=== PATIENT | male | born 1995 | race Caucasian/White ===

== ENCOUNTER 2021-07-16 12:59 | Day surgery (SDC) | payer OTHER ==
[~2021-07-16] VITALS: Ht 185.4 cm; Wt 105.9 kg
[~2021-07-16 12:59] MED LIST: NS 1,000 ML IV ONE
[2021-07-16] MEDS ORDERED: LIDOCAINE 2% 100MG/5ML SDV (FOR ANES.) As Ordered ONE (14:45)
[2021-07-16] MEDS ORDERED: propofoL 200 MG/20 ML VIAL As Ordered ONE ×2 (14:45→15:02)
[2021-07-16 15:40] VITALS: BP 126/81
== END 2021-07-16 15:49 | disposition home or self-care (01) ==
LOC: M OPP 12:59
PROVIDERS: ATTEND Internal Medicine Gastroenterology
DX: K92.1 Melena (principal); K64.8 Other hemorrhoids; K52.9 Noninfective gastroenteritis and colitis, unspecified; K63.89 Other specified diseases of intestine